=== PATIENT | female | born 1990 | race Caucasian/White ===

== ENCOUNTER 2022-10-05 05:54 | Inpatient (IN) ==
--- NOTE | 2022-10-02 13:39 | Anesthesiology Consultation ---
Date of Service October 02, 2022 Assessment & Plan (1) Encounter for pre-operative examination: Chart Review Chart Review: data entry processor initiated -COVID screening: Per PAT nursing assessment on 10/02/22. Congestion and runny nose- beginning 09/2022- home test Covid negative. No known COVID-19 positive contacts or current COVID-19 related symptoms. Symptoms >10 days- will get Garcia day of procedure. Travel screen negative. Patient is NOT vaccinated for Covid. At surgeon discretion if preop Covid testing being done. -Per OB records- elective primary - noting that she is concerned about vaginal tearing and worried that her pelvis is not large enough to deliver. History Surgery Operation Date: 10/05/22 07:30 Proposed Procedures p Section (Delivery of Baby Through Abdominal Incision) - Mahad Castillo MD Height/Weight Height: 5 ft 4 in Weight: 81.647 kg Allergies Allergy/AdvReac Type Severity Reaction Status Date / Time chlorhexidine Allergy rash, Verified 10/02/22 13:17 [From ChloraPrep Clear] itching isopropyl alcohol Allergy rash, Verified 10/02/22 13:17 [From ChloraPrep Clear] itching nickel Allergy contact Verified 10/02/22 13:17 rash Medications Home Medications Medication Instructions Recorded Confirmed Last Taken prenat.vits,lida,qos-xwfy-spiid 1 tab PO HS 04/18/22 10/02/22 Unknown Past Medical History Medical History History of COVID-19 08/2021, home test, not hosp; fatigue, loss taste/smell>resolved. 10/2021, pcr test urgent care [place], not hosp; congestion>resolved, w/exception of fully regaining smell Hx of Past Family History Family History Grandfather (Maternal) Colorectal cancer Past Surgical History Surgical History S/P wisdom tooth extraction Social History Smoking Status: Former smoker Do You Dip or Chew Tobacco: No Smoking End Date: 03/2022 Hx Alcohol Use: Yes Alcohol type: beer alcohol intake frequency: a few times a week Hx Substance Use: No substance use type: does not use Lab Results Anesthesia Preop Results Results Anesthesia Widget: Hgb 11.9 g/dl (12.0-16.0) L 08/11/22 Hct 35.3 % (34.1-44.9) 08/11/22
[2022-10-05] MEDS ORDERED: ceFAZolin 2000MG 2,000 MG/15 ML SYR IV SCH (06:00)
[2022-10-05] MEDS ORDERED: CITRIC ACID/SODIUM CITRATE 15 ML UDC PO SCH (06:00)
[2022-10-05] MEDS ORDERED: LACTATED RINGER'S 1,000 ML IV SCH ×2 (06:15→09:00)
[2022-10-05 06:23] LABS: Hematocrit (blood only) 34.8 % (34.1-44.9); Hemoglobin 11.8 g/dl (12.0-16.0); Mean Corpuscular Hemoglobin 30.4 pg (25.0-34.0); Mean Corpuscular Hgb Conc 33.9 g/dL (32.0-36.0); Mean Corpuscular Volume 89.7 fL (80.0-100.0); Mean Platelet Volume 10.2 fL (9.4-12.3); Platelet Count 194 K/uL (130-400); RDW Coefficient of Variation 13.5 % (11.5-14.5); RDW Standard Deviation 44.3 fL (36.4-46.3); Red Blood Count 3.88 M/uL (3.93-5.22); White Blood Count 7.79 K/ul (4.8-10.8)
[2022-10-05] MEDS ORDERED: MoRPHine SULFATE PF 1 MG/ML 10 ML AMP/VIAL ONE (07:17)
--- NOTE | 2022-10-05 07:27 | History & Physical Report ---
Date of Service October 05, 2022 Assessment & Plan (1) Supervision of normal intrauterine in primigravida: Plan: 31yo at 39w3d GA. Presents for elective . 1. Fetus: Cat 1 2. Delivery: Planned elective primary 3. Vitals: Mildly elevated - Will monitor. (2) Term : Admission and Anticipated Discharge Date Admission Date: October 05, 2022 History of Present Illness Primary Care Provider: Amanda Coyne MD 31yo at 39w3d GA. Presents for elective . Complete previa at 20wk Rescan at 32wk - resolved - 2.2cm from int os Elective - C/S SCHEDULED FOR 10/05/[address] ROJAS GDM Undiagnosed-declines doing 2hr GTT *Dietary referral *Qmonthly growth US Patient no showed her dietary consult OB Labs: Blood Type O Positive 04/21/22 Antibody Screen NEGATIVE 04/21/22 Hemoglobin 11.9 g/dl (12.0-16.0) L 08/11/22 E Hematocrit 35.3 % (34.1-44.9) 08/11/22 Mean Corpuscular Volume 92.1 fL (80.0-100.0) 04/21/22 Platelet Count 291 K/uL (130-400) 04/21/22 Rubella IgG Antibody Immune (Immune) 04/21/22 Rapid Plasma Reagin Nonreactive (Nonreactive) 04/21/22 Hepatitis B Surface Antigen. NON-REACTIVE (NON-REACTIVE) 04/21/22 Hepatitis C Antibody (EIA) NON-REACTIVE (NON-REACTIVE) 04/21/22 HIV (1&2) Ag and Ab Confirmation NON-REACTIVE (NON-REACTIVE) 04/21/22 Glucose 1 Hour 50 gm Load 180 mg/dl (70-130) H 08/11/22 OB Optional Labs: Chlamydia trachomatis RNA NOT DETECTED (NOT DETECTED) 04/21/22 Neisseria gonorrhoeae RNA NOT DETECTED (NOT DETECTED) 04/21/22 Allergies Allergy/AdvReac Type Severity Reaction Status Date / Time chlorhexidine Allergy rash, Verified 10/04/22 13:35 [From ChloraPrep Clear] itching isopropyl alcohol Allergy rash, Verified 10/04/22 13:35 [From ChloraPrep Clear] itching nickel Allergy contact Verified 10/04/22 13:35 rash Home Medications Medication Instructions Recorded Confirmed Type prenat.vits,lida,bff-akvu-gmpsc 1 tab PO HS 04/18/22 10/05/22 History Patient History Medical History (Updated 10/05/22 @ 07:23 by Mahad Rojas MD) History of COVID-19 08/2021, home test, not hosp; fatigue, loss taste/smell>resolved. 10/2021, [facility]; congestion>resolved, w/exception of fully regaining smell Hx of Surgical History (Updated 10/05/22 @ 06:02 by Sherin Kumar RN) H/O breast augmentation 2009 S/P wisdom tooth extraction Family History Grandfather (Maternal) Colorectal cancer Social History (Updated 04/18/22 @ 17:25 by Althea Morales) Smoking Status: Former smoker Smoking End Date: March 2022; Second Hand Exposure: No; Do You Dip or Chew Tobacco: No; Tobacco Cessation Education Requested by Patient: No Hx Alcohol Use: No Hx Substance Use: No Preferred Language: [place] Islander Communication Ability: Effective Rounding Machine Tender Required: No Beliefs That Will Affect Care: None marital status: Single marital status details: Chetan (35) [phone] Current Living Situation: Significant Other Current Living Situation Comment: [place] current occupational status: employed current occupation: [employer] Other Information That Helps Us Care for You: No Feels Safe at Home: Yes Safety Concerns: Feels Safe At This Time Assistive Devices: Contacts Physical Exam Constitutional: WD/WN, vitals as above Respiratory: normal respiratory effort, lungs clear to auscultation Cardiovascular: RRR, no murmur, no edema Rate/Rhythm: regular rate and regular rhythm Heart Sounds: normal S1 and normal S2 Musculoskeletal: no cyanosis or clubbing, extremities motor strength 5/5 Genitourinary: no vaginal lesions, no adnexal mass OB Exam Abdomen: + vertex Results & Data ([facility]) Vital Signs (Past 12 Hours) Vital Signs Temp Pulse Resp BP 10/05/22 06:05 36.6 C 75 18 143/89 H Coding Level of Care Code None Diagnoses Supervision of normal intrauterine in primigravida Z34.00 Term Z34.90
[2022-10-05] MEDS ORDERED: MoRPHine SULFATE 2 MG/ML CARP IV PRN (08:04)
[2022-10-05] MEDS ORDERED: NALBUPHINE HCL INJ 10 MG/ML AMP IV PRN (08:04)
[2022-10-05] MEDS ORDERED: ePHEDrine sulfate 50 MG/ML AMP IV PRN (08:04)
[2022-10-05] MEDS ORDERED: NALOXONE HCL 1 MG in SODIUM CHLORIDE 0.9% 1000ML 1,000 ML IV PRN (08:04)
[2022-10-05] MEDS ORDERED: MoRPHine SULFATE PF 1 MG/ML 10 ML AMP/VIAL INT SPINAL ONE (08:04)
[2022-10-05] MEDS ORDERED: LACTATED RINGER'S 500 ML IV PRN (08:04)
[2022-10-05] MEDS ORDERED: NALOXONE HCL 0.4 MG/1 ML VIAL/CARP IV PRN (08:04)
[2022-10-05] MEDS ORDERED: NALOXONE HCL 0.08 MG in SYRINGE 1.8 ML IV PRN (08:04)
[2022-10-05] MEDS ORDERED: ONDANSETRON INJ 2 MG/ML 2 ML VIAL IV PRN (08:04)
[2022-10-05] MEDS ORDERED: diphenhydrAMINE 50 MG/ML VIAL IV PRN (08:04)
[2022-10-05] MEDS ORDERED: PROMETHAZINE HCL 12.5 MG in SODIUM CHLORIDE 0.9% 50 ML IV PRN (08:04)
[2022-10-05] MEDS ORDERED: SODIUM CHLORIDE 0.9% 1000ML 1,000 ML IV SCH (08:15)
[2022-10-05] MEDS ORDERED: DC INTRASPINAL MORPHINE SCH (08:15)
[2022-10-05] MEDS ORDERED: NO NARCOTICS OR SEDATIVES SCH (08:15)
[2022-10-05] MEDS ORDERED: METOCLOPRAMIDE HCL INJ 5 MG/ML 2 ML VIAL ONE (08:21)
[2022-10-05] MEDS ORDERED: ePHEDrine sulfate 50 MG/ML SYR ONE (08:21)
[2022-10-05] MEDS ORDERED: PHENYLEPHRINE 100MCG/ML 5ML SYR ONE (08:21)
[2022-10-05] MEDS ORDERED: OXYTOCIN 10 UNITS/ML 10ML VIAL ONE (08:21)
[2022-10-05] MEDS ORDERED: ONDANSETRON INJ 2 MG/ML 2 ML VIAL ONE (08:21)
[2022-10-05] MEDS ORDERED: PROPOFOL IV EMULSION 10 MG/ML 20 ML VIAL IV ONE (08:21)
[2022-10-05] MEDS ORDERED: BENZOCAINE 20% AER SPR 82.5 GM CAN EXT PRN (08:54)
[2022-10-05] MEDS ORDERED: HYDROCORTISONE ACETATE 25 MG SUPP PR PRN (08:54)
[2022-10-05] MEDS ORDERED: SENNA 8.6 MG TAB PO PRN (08:54)
[2022-10-05] MEDS ORDERED: MAGNESIUM HYDROXIDE SUSP 30 ML UDC PO PRN (08:54)
[2022-10-05] MEDS ORDERED: DIPHTHERIA/TETANUS/PERTUSSIS 0.5 ML SYR/VIAL IM ONE (08:54)
--- NOTE | 2022-10-05 08:54 | Post Operative Brief Note ---
PG Immediate Post Op with CF Date of Surgery October 05, 2022 Pre & Post Diagnosis Operation Date: 10/05/22 07:30 Pre-Op Diagnosis: Term . Elective primary section. Post-Op Diagnosis: Term . Elective primary section. I identified the patient and participated in the time-out.: Yes Procedure Operation Date: 10/05/22 07:30 Actual Procedures p Section in LD - Mahad Castillo MD Surgeon Mahad Castillo MD Immigration Services Officer Dr Ramirez Estimated Blood Loss 600 Findings Consistent with Post-Op Diagnosis Specimens Specimen Description: A: placenta HOLD B: cord blood Drains Kaminski Catheter (inserted after spinal, draining clear yellow urine. ) OB Procedure charges OB Charges 42180
[2022-10-05] MEDS: KETOROLAC 30 MG/ML VIAL IV PRN (10:21)
--- NOTE | 2022-10-05 10:29 | Operative Report (OR) ---
DATE OF SERVICE: 10/05/2022 PROCEDURE: Primary section. SURGEON: Mahad Castillo MD FACILITY MAINTENANCE MECHANIC: Mariluz Ramirez MD PREOPERATIVE DIAGNOSES: 1. Single intrauterine at term. 2. Desired elective primary section. 3. Gestational diabetes. POSTOPERATIVE DIAGNOSES: 1. Single intrauterine at term. 2. Desired elective primary section. 3. Gestational diabetes. 4. Status post procedure. ESTIMATED BLOOD LOSS: 600 mL. DRAINS: Kaminski catheter. FLUIDS: Continuous lactated Ringer. URINE OUTPUT: Per Kaminski catheter. COMPLICATIONS: None. FINDINGS: Viable with weight and Apgars pending. The placenta was abnormally attached to the uterus. It took gentle separation and a banjo curettage and visual inspection of the uterus after w as notable for no clear remaining membranes present, although there was question for an accreta durin g the removal. No significant bleeding noted after removal. DESCRIPTION OF PROCEDURE: The patient was taken to the operating room after consents were ensured. Upon presentation, she was properly identified. Spinal anesthesia was obtained without difficulty. The patient was then prepped and draped in normal sterile fashion. Preprocedural time-out was perfor med, after which a Pfannenstiel incision was then made with a knife. This was carried down to underl veronica fascia with the Bovie. The fascia was then nicked at the midline, extended laterally in each di rection with edmar and Colon scissors. Superior aspect of the fascia was grasped with Kochyvette x2, e levated off the underlying rectus muscles using blunt dissection. Inferior aspect of the fascia was grasped with Kochers x2, elevated off the underlying rectus muscles using blunt dissection. Midline was then entered bluntly, placed on the stretch to provide adequate room for delivery. The bladder f lap was created and a low transverse uterine incision was then made with a knife. The head of the ne jose alejandro was noted to be in cephalic position, delivered through the hysterotomy without difficulty, bod y and shoulders quickly followed. was noted to be vigorous soon after delivery. The cord wa s double clamped and cut. was taken to the waiting nursery staff for evaluation. Cord blood was obtained. Attention was then turned to delivery of placenta. The placenta was not delivering wi th gentle cord traction and uterine massage, and after about a minute of massage and cord traction, a n inspection of the placenta was performed with manual extraction of the placenta. There was noted t o be an atypical attachment on anterior aspect of the uterus. Gentle separation was able to fully se parate the placenta. A gentle banjo curettage was performed due to concern for pieces of membrane re maining which did yield a few pieces of remaining placenta. The uterus was then wiped with a dry lap to remove any remaining membranes and a visual inspection of the entire uterine cavity was performed and no clear findings concerning for remaining membranes present. The hysterotomy was then reapprox imated with 0 Vicryl continuous running locked stitch. A second imbricating layer was performed. A small area of bleeding was still noted and a [id number] stitch was used to achieve hemostasis. Posterior cul-de-sac was then cleaned of clots and debris and the uterus was returned to maternal abd omen and inspection of the right and left pericolic gutters was performed followed by reinspection of the incision, which remained hemostatic. The subcutaneous fascial and muscle layers were inspected and noted to be hemostatic. The fascia was reapproximated with 0 Vicryl continuous running stitch. The subcutaneous layers were reapproximated with 2-0 plain in a single layer, which incorporated the Lisa's. The skin was reapproximated with 3-0 Vicryl on a Garfield needle. Needle, sponge, and instru ment counts were correct at the completion of the case. Both mother and stable in the immedi ate post-delivery period. Job ID: [id number]
[2022-10-05] MEDS: OXYTOCIN 20 UNITS in LACTATED RINGER'S 1,000 ML IV SCH ×2 (11:26→19:35)
[2022-10-05] MEDS: SIMETHICONE 80 MG CHEW PO SCH ×3 (13:12→21:26)
[2022-10-05] MEDS: DOCUSATE SODIUM 100 MG CAP PO SCH (21:26)
[2022-10-06] MEDS: KETOROLAC 30 MG/ML VIAL IV PRN (00:59)
[2022-10-06] MEDS ORDERED: KETOROLAC 30 MG/ML VIAL IV PRN (02:05)
[2022-10-06] MEDS ORDERED: diphenhydrAMINE 50 MG/ML VIAL IV PRN (02:05)
[2022-10-06] MEDS ORDERED: diphenhydrAMINE Capsule 25 MG CAP PO PRN (02:05)
[2022-10-06] MEDS ORDERED: PROMETHAZINE HCL 25 MG in SODIUM CHLORIDE 0.9% 50 ML IV PRN (02:05)
[2022-10-06] MEDS ORDERED: ONDANSETRON INJ 2 MG/ML 2 ML VIAL IV PRN (02:05)
[2022-10-06 06:46] LABS: Basophils # (auto) 0.04 K/uL (0-0.2); Basophils % (auto) 0.5 %; Eosinophils # (auto) 0.13 K/uL (0-0.50); Eosinophils % (auto) 1.5 %; Hematocrit (blood only) 29.5 % (34.1-44.9); Hemoglobin 10.3 g/dl (12.0-16.0); Immature Granulocytes # (auto) 0.05 K/uL (0.00-0.02); Immature Granulocytes % (auto) 0.6 %; Lymphocytes # (auto) 1.23 K/uL (1.2-3.4); Lymphocytes % (auto) 14.6 %; Mean Corpuscular Hemoglobin 30.7 pg (25.0-34.0); Mean Corpuscular Hgb Conc 34.9 g/dL (32.0-36.0); Mean Corpuscular Volume 87.8 fL (80.0-100.0); Mean Platelet Volume 10.1 fL (9.4-12.3); Monocytes # (auto) 0.57 K/uL (0.24-0.82); Monocytes % (auto) 6.8 %; Neutrophils # (auto) 6.39 K/uL (1.4-6.5); Platelet Count 171 K/uL (130-400); RDW Coefficient of Variation 13.2 % (11.5-14.5); RDW Standard Deviation 42.5 fL (36.4-46.3); Red Blood Count 3.36 M/uL (3.93-5.22); White Blood Count 8.41 K/ul (4.8-10.8)
--- NOTE | 2022-10-06 07:00 | Obstetrical Progress Note ---
Date of Service <Gloria HuntCam Landry DO - Last Filed: 10/06/22 07:00> October 06, 2022 Assessment & Plan <Gloria Guerrier DO Gris - Last Filed: 10/06/22 07:00> (1) care following delivery: Patient is PPD 1 s/p primary C section and doing well. - Eating well, voiding well, ambulating well - Vitals reviewed and within normal limits - Pain well controlled with analgesics - OOB, ambulation, diet progression as tolerated - Blood type: O+, GBS neg, rubella immune - Plan to discharge tomorrow - After discharge, 6 [address] up [address] Castillo <Mahad Castillo MD - Last Filed: 10/06/22 07:48> (1) care following delivery: Subjective <Gloria Guerrier DO Gris - Last Filed: 10/06/22 07:00> Patient is a 31 yo female is POD #1 following delivery at 39+3 weeks. She reports feeling well overall this morning. She endorses mild abdominal cramping and 2/10 pain while at rest and 4/10 pain while moving well managed on analgesics. Voiding without issue. Tolerating regular meals overnight and able to ambulate some. She has passed gas and no bowel movement. Persistent lochia with some improvement this morning. Currently breast feeding. Review of Systems Denies fever, chills, sweats. Denies SOB, difficulty breathing, chest pain, palpitations, and chest pressure. Denies breast pain. Denies dysuria. Denies headache or changes in vision. Physical Exam <Gloria Landry DO - Last Filed: 10/06/22 07:00> General: Alert and oriented. No acute distress. CV: Regular rate and rhythm. No murmurs. Respiratory: CTA bilaterally. No rhonchi, wheezes, or crackles. No increased work of breathing. Abdomen: Positive bowel sounds. Soft, nontender, and nondistended. Uterus: Fundus firm and palpable 3 cm below umbilicus. Surgical scar clean and healing well. Lower extremities: Mild nonpitting bilateral LE edema. No deep calf pain. Linda's negative bilaterally. Results & Data ([facility]) <Gloria Landry DO - Last Filed: 10/06/22 07:00> Vital Signs (Past 12 Hours) Vital Signs Temp Pulse Resp BP Pulse Ox O2 Del Method 10/06/22 04:14 36.4 C L 88 18 134/64 97 Room Air 10/06/22 02:00 18 96 10/06/22 01:00 16 96 10/06/22 00:00 20 97 10/05/22 23:00 18 97 10/06/22 01:11 36.6 C 91 H 16 134/68 96 10/05/22 22:00 18 97 10/05/22 21:00 18 97 10/05/22 19:59 36.6 C 70 18 120/68 99 Room Air 10/05/22 19:57 18 99 <Mahad Castillo MD - Last Filed: 10/06/22 07:48> Co-Signing Physician Notes Patient seen with resident and agree with the above findings and plan. Routine OB care Resident Activity Tracking <Gloria Landry DO - Last Filed: 10/06/22 07:00> Resident Involvement: Resident Care Provided Care Provided: OB Delivery
[2022-10-06] MEDS: IBUPROFEN 600 MG TAB PO PRN ×3 (08:28→17:37)
[2022-10-06] MEDS: FERROUS SULFATE 325 MG TAB PO SCH (08:29)
[2022-10-06] MEDS: DOCUSATE SODIUM 100 MG CAP PO SCH ×2 (08:29→21:14)
[2022-10-06] MEDS: SIMETHICONE 80 MG CHEW PO SCH ×4 (08:29→21:14)
[2022-10-06] MEDS: PRENATAL VITAMIN 1 TAB PO SCH (08:29)
[2022-10-06] MEDS: oxyCODONE/ACETAMINOPHEN 5mg/325mg TAB PO PRN ×2 (12:18→19:20)
[2022-10-06] MEDS ORDERED: bisacodyL 5 MG TABEC PO SCH (20:00)
[2022-10-07] MEDS: IBUPROFEN 600 MG TAB PO PRN ×3 (01:59→13:11)
[2022-10-07] MEDS: oxyCODONE/ACETAMINOPHEN 5mg/325mg TAB PO PRN ×3 (02:00→13:11)
--- NOTE | 2022-10-07 07:31 | Obstetrical Progress Note ---
Date of Service October 07, 2022 Assessment & Plan (1) care following delivery: Plan Doing well. Plan d/c. Instructions reviewed. rtc in 6 weeks for pp visit. Day #:: 2 Subjective Ambulation: ambulating normally Voiding: no voiding problems Passing Gas:: Yes Diet Tolerance:: regular diet Lochia:: Small Feeding Type:: breast feeding pain controlled, ready to be d/c. Physical Exam Constitutional WD/WN, vitals as above Cardiovascular Extremities: + edema (tr); no calf tenderness Gastrointestinal (Abdomen) soft, nt, nd, ff/nt at u incision c/d/i Psychiatric A+Ox3, euthymic affect Results & Data ([facility]) Vital Signs (Past 12 Hours) Vital Signs Temp Pulse Resp BP Pulse Ox O2 Del Method 10/06/22 23:45 36.8 C 78 16 115/77 98 Room Air
[2022-10-07 07:47] LABS: Hematocrit (blood only) 30.3 % (34.1-44.9); Hemoglobin 10.3 g/dl (12.0-16.0)
[2022-10-07] MEDS: SIMETHICONE 80 MG CHEW PO SCH (08:29)
[2022-10-07] MEDS: FERROUS SULFATE 325 MG TAB PO SCH (08:30)
[2022-10-07] MEDS: PRENATAL VITAMIN 1 TAB PO SCH (08:30)
[2022-10-07] MEDS: DOCUSATE SODIUM 100 MG CAP PO SCH (08:30)
[2022-10-07] MEDS ORDERED: bisacodyL 10 MG SUPP PR PRN (08:54)
== END 2022-10-07 13:15 | disposition home or self-care (01) | DRG 788 ==
LOC: 4S1 05:54 → EDSTATUS 07:30 → 4E2 12:09
DX: Z91.09 Other allergy status, other than to drugs and biological substances; Z37.0 Single live birth; O24.429 Gestational diabetes mellitus in childbirth, unspecified control; Z3A.39 39 weeks gestation of pregnancy; Z87.891 Personal history of nicotine dependence; Z88.8 Allergy status to other drugs, medicaments and biological substances